=== PATIENT | male | born 1985 ===

== ENCOUNTER 2019-08-23 21:12 | Emergency (ER) | payer OTHER ==
[2019-08-23 21:25] VITALS: BP 133/86
[2019-08-23] MEDS ORDERED: IBUPROFEN 600 MG TAB PO ONE (21:58)
[2019-08-23] MEDS ORDERED: ACETAMINOPHEN 500 MG TAB PO ONE (21:58)
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
== END 2019-08-24 00:15 | disposition home or self-care (01) ==
LOC: ED 21:12
DX: S00.03XA Contusion of scalp, initial encounter (principal); J32.4 Chronic pansinusitis; G44.319 Acute post-traumatic headache, not intractable; M54.2 Cervicalgia; Z79.899 Other long term (current) drug therapy; V89.2XXA Person injured in unspecified motor-vehicle accident, traffic, initial encounter; Y93.89 Activity, other specified; Y92.488 Other paved roadways as the place of occurrence of the external cause; Y99.8 Other external cause status
CPT/HCPCS: 70450; 70486; 72125; 99284